=== PATIENT | male | born 1950 | race Caucasian/White ===

== ENCOUNTER 2018-01-09 09:29 | Day surgery (SDC) | payer MEDICARE ==
[~2018-01-09] VITALS: Ht 188 cm; Wt 122.5 kg
[~2018-01-09 09:29] MED LIST: AMOXICILLIN500 MG PO; ASPIRIN LOW DOS81 M2 PO; FAMOTIDINE20 M3 PO; FLONASE NASAL50 MCG; GLIMEPIRIDE2 MG PO; LIPITOR40 MG PO; MELOXICAM15 MG PO; METFORMIN500 M2 PO; NOVOLIN N100 UNIT/2 SC; SIMVASTATIN10 MG PO; ULTRAM50 M1 PO; WELLBUTRIN SR150 MG PO; ZYRTEC10 M5 PO
[2018-01-09 11:46] VITALS: BP 115/68
== END 2018-01-09 11:35 | disposition home or self-care (01) ==
LOC: ENDO 09:29 → PO 11:15 → ENDO 11:15
PROVIDERS: ATTEND Surgery
PROC: 0DBN8ZX Excision of Sigmoid Colon, Via Natural or Artificial Opening Endoscopic, Diagnostic (ICD-10-PCS; principal; 2018-01-09)
DX: Z12.11 Encounter for screening for malignant neoplasm of colon (principal); K63.5 Polyp of colon; K57.30 Diverticulosis of large intestine without perforation or abscess without bleeding

== ENCOUNTER 2023-02-19 14:31 | Observation (INO) | payer MEDICARE ==
[~2023-02-19] VITALS: Ht 188 cm; Wt 126.0 kg
[2023-02-19] VITALS (26 sets, daily range): BP systolic 83–154; BP diastolic 42–107
[2023-02-19 14:59] LABS: GFR FOR AFR.AMER. > 60 ML/MIN (>=60 (CALC)); GFR OTHER RACES > 60 ML/MIN (>=60 (CALC))
[2023-02-19 15:02] LABS: BASO% 0.8 % (0-3); HEMATOCRIT 45.9 % (39.0-50.0); HEMOGLOBIN 15.4 g/dl (14.0-18.0); IMMATURE GRANULOCYTES 0.4 % (0.0-5.0); LYMPH% 18.4 % (15-41); MEAN CORPUSCULAR HGB 29.8 pG CALC (26.0-32.0); MEAN CORPUSCULAR HGB CONC 33.6 g/dL CAL (32.0-36.0); NEUT# 5.13 thou/uL (1.82-7.42); NEUT% 68.4 % (42-76); RED BLOOD COUNT 5.16 mill/uL (4.70-6.10); RED CELL DISTRI WIDTH 13.6 % (11.5-15.5)
[2023-02-19 15:18] LABS: ALKALINE PHOSPHATASE 73 u/l (38-126); ANION GAP 14 (6-22 (CALC)); BILIRUBIN, TOTAL 0.7 mg/dL (0.2-1.3); BUN 19 mg/dL (8-23); BUN/CREATININE RATIO 20 (12-20 (CALC)); CARBON DIOXIDE 24 mmol/l (22-30); CHLORIDE 100 mmol/l (95-108); CREATININE 0.9 mg/dL (0.7-1.3); GFR FOR AFR.AMER. > 60 ML/MIN (>=60 (CALC)); GFR OTHER RACES > 60 ML/MIN (>=60 (CALC)); MAGNESIUM 1.6 mg/dL (1.6-2.3); POTASSIUM 4.2 mmol/l (3.5-5.1); SGOT/AST 43 u/l (19-48); SODIUM 133 mmol/l (137-146)
[2023-02-19 16:14] LABS: TSH, 3RD GENERATION 2.65 uIU/mL (0.47 - 4.68)
[2023-02-20] VITALS (43 sets, daily range): BP systolic 94–154; BP diastolic 47–122
[2023-02-20 05:54] LABS: HEMATOCRIT 42.5 % (39.0-50.0); MEAN CELL VOLUME 91.6 fL CALC (80.0-100.0); MEAN CORPUSCULAR HGB 28.9 pG CALC (26.0-32.0); MEAN CORPUSCULAR HGB CONC 31.5 g/dL CAL (32.0-36.0); RED BLOOD COUNT 4.64 mill/uL (4.70-6.10); RED CELL DISTRI WIDTH 12.2 % (11.5-15.5)
[2023-02-20 05:59] LABS: HEMOGLOBIN 13.4 g/dl (14.0-18.0)
[2023-02-20 06:09] LABS: ALBUMIN 3.7 g/dL (3.2-5.0); ALKALINE PHOSPHATASE 64 u/l (38-126); ANION GAP 17 (6-22 (CALC)); BILIRUBIN, TOTAL 0.6 mg/dL (0.2-1.3); BUN 16 mg/dL (8-23); BUN/CREATININE RATIO 29 (12-20 (CALC)); CARBON DIOXIDE 22 mmol/l (22-30); CHLORIDE 106 mmol/l (95-108); CREATININE 0.6 mg/dL (0.7-1.3); GFR FOR AFR.AMER. > 60 ML/MIN (>=60 (CALC)); GFR OTHER RACES > 60 ML/MIN (>=60 (CALC)); MAGNESIUM 1.3 mg/dL (1.6-2.3); POTASSIUM 4.2 mmol/l (3.5-5.1); SGOT/AST 49 u/l (19-48); SODIUM 141 mmol/l (137-146); TOTAL PROTEIN 6.4 g/dL (6.3-8.2)
[2023-02-21 00:01] VITALS: BP 106/54
[2023-02-21 00:16] VITALS: BP 92/58
[2023-02-21 00:33] VITALS: BP 103/55
[2023-02-21 02:01] VITALS: BP 108/66
[2023-02-21 02:46] VITALS: BP 129/83
[2023-02-21 06:23] LABS: BASO% 0.5 % (0-3); EOS% 1.3 % (0-8); HEMATOCRIT 44.3 % (39.0-50.0); HEMOGLOBIN 14.7 g/dl (14.0-18.0); IMMATURE GRANULOCYTES 0.2 % (0.0-5.0); LYMPH% 14.4 % (15-41); MEAN CELL VOLUME 90.8 fL CALC (80.0-100.0); MEAN CORPUSCULAR HGB 30.1 pG CALC (26.0-32.0); MEAN CORPUSCULAR HGB CONC 33.2 g/dL CAL (32.0-36.0); MONO% 9.7 % (2-13); NEUT# 6.32 thou/uL (1.82-7.42); NEUT% 73.9 % (42-76); RED BLOOD COUNT 4.88 mill/uL (4.70-6.10); RED CELL DISTRI WIDTH 13.8 % (11.5-15.5)
[2023-02-21 06:31] LABS: ALBUMIN 3.8 g/dL (3.2-5.0); ALKALINE PHOSPHATASE 72 u/l (38-126); BILIRUBIN, TOTAL 0.8 mg/dL (0.2-1.3); BUN 20 mg/dL (8-23); BUN/CREATININE RATIO 25 (12-20 (CALC)); CARBON DIOXIDE 24 mmol/l (22-30); CHLORIDE 100 mmol/l (95-108); CREATININE 0.8 mg/dL (0.7-1.3); GFR FOR AFR.AMER. > 60 ML/MIN (>=60 (CALC)); GFR OTHER RACES > 60 ML/MIN (>=60 (CALC)); POTASSIUM 4.6 mmol/l (3.5-5.1); SGOT/AST 40 u/l (19-48); TOTAL PROTEIN 6.4 g/dL (6.3-8.2)
[2023-02-21 06:32] LABS: ANION GAP 14 (6-22 (CALC)); MAGNESIUM 2.2 mg/dL (1.6-2.3); SODIUM 133 mmol/l (137-146)
== END 2023-02-21 07:30 | disposition left against medical advice (07) ==
LOC: ED 14:31 → ED-I 14:53 → ED 17:48 → ED-I 17:49 → ICU 02-20 17:02
PROVIDERS: Family Medicine; Nurse Practitioner Family; ADMIT Student in an Organized Health Care Education/Training Program; ATTEND Student in an Organized Health Care Education/Training Program
DX: I48.92 Unspecified atrial flutter (principal); J18.9 Pneumonia, unspecified organism; I50.9 Heart failure, unspecified; E11.9 Type 2 diabetes mellitus without complications; E83.42 Hypomagnesemia; E78.5 Hyperlipidemia, unspecified; E66.9 Obesity, unspecified; Z79.84 Long term (current) use of oral hypoglycemic drugs; Z79.4 Long term (current) use of insulin; Z20.822 Contact with and (suspected) exposure to COVID-19
CPT/HCPCS: J1650; J3475; Q9967